=== PATIENT | female | born 1960 | race African-American/Black ===

== ENCOUNTER 2023-05-30 08:11 | Emergency (ER) | payer MEDICARE, MEDICAID ==
[~2023-05-30] VITALS: Ht 162.6 cm; Wt 58.0 kg
[2023-05-30 08:15] VITALS: PULSE 83
[2023-05-30 08:24] VITALS: BP 105/51; RESP 20; TEMP 98.3; O2SAT 98
[2023-05-30] MEDS ORDERED: DOXY100T28 MT (11:30)
[2023-05-30] MEDS ORDERED: DIPH25TA62 PO (11:30)
[2023-05-30] MEDS ORDERED: HYDR-4622 TP (11:30)
[2023-05-30] MEDS ORDERED: DIPHENHYDRAMINE 50MG/ML VIAL IM ONE (12:00)
== END 2023-05-30 11:33 | disposition home or self-care (01) ==
LOC: ER 08:30
DX: L03.114 Cellulitis of left upper limb (principal)
CPT/HCPCS: 99283; 96372; J1200